=== PATIENT | female | born 1945 | race Caucasian/White ===

== ENCOUNTER → 2016-11-23 | Outpatient (CLI) | payer MEDICARE, BC | LOC: HEART 5 11-16 09:15 | DX: R07.89 Other chest pain (principal) | CPT/HCPCS: 78452; A9502; J2785 ==

== ENCOUNTER → 2020-09-26 | Outpatient (CLI) | payer MEDICARE, BC ==
[~2020-09-26] VITALS: Ht 154.9 cm; Wt 105.7 kg
== END ==
LOC: OPSV 08:50
DX: S32.000A Wedge compression fracture of unspecified lumbar vertebra, initial encounter for closed fracture (principal); M81.0 Age-related osteoporosis without current pathological fracture
CPT/HCPCS: 96372

== ENCOUNTER → 2021-03-27 | Outpatient (CLI) | payer MEDICARE, BC | LOC: OPSV 11:47 | DX: M81.0 Age-related osteoporosis without current pathological fracture (principal); S32.000A Wedge compression fracture of unspecified lumbar vertebra, initial encounter for closed fracture | CPT/HCPCS: 96372 ==

== ENCOUNTER → 2021-10-01 | Outpatient (CLI) | payer MEDICARE, BC ==
[~2021-10-01] VITALS: Ht 154.9 cm; Wt 90.7 kg
== END ==
LOC: OPSV 14:50
DX: M81.0 Age-related osteoporosis without current pathological fracture (principal); G95.20 Unspecified cord compression
CPT/HCPCS: 96372

== ENCOUNTER → 2022-04-14 | Outpatient (CLI) | payer MEDICARE, BC ==
[~2022-04-14] VITALS: Ht 154.9 cm; Wt 103.9 kg
== END ==
LOC: OPSV 13:49
DX: M80.08XA Age-related osteoporosis with current pathological fracture, vertebra(e), initial encounter for fracture (principal)
CPT/HCPCS: 96372